=== PATIENT | female | born 1990 | race Caucasian/White ===

== ENCOUNTER 2023-06-27 04:15 | Emergency (ER) | payer MEDICAID ==
[~2023-06-27] VITALS: Ht 162.6 cm; Wt 77.3 kg
[2023-06-27 05:00] LABS: BASO % 0.2 % (0.0-1.0); EOS # 0.1 10^3/uL (0.0-0.5); EOS % 0.5 % (0.0-3.0); HEMATOCRIT 39.4 % (36.0-47.0); HEMOGLOBIN 13.4 g/dl (12.0-15.5); LYMPH # 2.4 10^3/uL (1.5-5.0); LYMPH % 25.1 % (24.0-44.0); MEAN CORPUSCULAR VOLUME 88.1 fl (80.0-96.0); MONO # 0.8 10^3/uL (0.0-0.8); NEUTROPHILS # 6.2 10^3/uL (1.5-8.5); PLATELET COUNT, AUTOMATED 346 10^3/uL (150-450); RED BLOOD COUNT 4.47 10^6/uL (4.00-5.40); WHITE BLOOD COUNT 9.4 10^3/uL (4.0-10.0)
[2023-06-27 05:24] LABS: LIPASE 37 U/L (12-53)
[2023-06-27 05:26] LABS: HCG, SERUM QUALITATIVE NEGATIVE (NEGATIVE)
[2023-06-27 05:27] LABS: ALBUMIN 3.6 G/DL (3.2-5.2); ALKALINE PHOSPHATASE 100 U/L (46-116); ALT/SGPT 14 U/L (7.0-40); AST/SGOT 19 U/L (<34); BILIRUBIN,DIRECT < 0.1 MG/DL (<0.4); BILIRUBIN,TOTAL 0.4 MG/DL (0.3-1.2); BLOOD UREA NITROGEN 10 MG/DL (9-23); CARBON DIOXIDE LEVEL 22 MMOL/L (20-31); CHLORIDE LEVEL 107 MMOL/L (98-107); CREATININE FOR GFR 0.63 MG/DL (0.55-1.30); GLOMERULAR FILTRATION RATE > 60.0 (>60); GLUCOSE, FASTING 100 MG/DL (60-100); POTASSIUM SERUM 4.2 MMOL/L (3.5-5.1); SODIUM LEVEL 141 MMOL/L (136-145); TOTAL PROTEIN 6.9 G/DL (5.7-8.2)
[2023-06-27] MEDS ORDERED: ACETAMINOPHEN 500 MG TAB PO ONE (07:35)
[2023-06-27] MEDS ORDERED: DOXY-443 PO (09:44)
[2023-06-27 09:45] VITALS: BP 141/80; TEMP 97.2; O2SAT 97
== END 2023-06-27 10:05 | disposition home or self-care (01) ==
LOC: M ED 04:15
DX: R11.10 Vomiting, unspecified (principal); R51.9 Headache, unspecified; T14.8XXA Other injury of unspecified body region, initial encounter; Z86.69 Personal history of other diseases of the nervous system and sense organs; F41.9 Anxiety disorder, unspecified; Z91.018 Allergy to other foods

== ENCOUNTER 2023-07-23 16:53 | Inpatient (IN) | payer MEDICAID ==
[~2023-07-23] VITALS: Ht 162.6 cm; Wt 77.3 kg
[~2023-07-23 16:53] MED LIST: DOXY-443 PO
[2023-07-23 18:14] LABS: HEMATOCRIT 41.8 % (36.0-47.0); HEMOGLOBIN 14.1 g/dl (12.0-15.5); MEAN CORPUSCULAR HEMOGLOBIN 30.1 pg (27.0-33.0); MEAN CORPUSCULAR HGB CONC 33.7 g/dl (32.0-36.5); MEAN CORPUSCULAR VOLUME 89.3 fl (80.0-96.0); PLATELET COUNT, AUTOMATED 330 10^3/uL (150-450); RED BLOOD COUNT 4.68 10^6/uL (4.00-5.40); WHITE BLOOD COUNT 8.6 10^3/uL (4.0-10.0)
[2023-07-23 18:21] LABS: BARBITURATES URINE NEGATIVE (NEGATIVE); BENZODIAZEPINES URINE NEGATIVE (NEGATIVE); COCAINE METABOLITE URINE NEGATIVE (NEGATIVE); METHADONE URINE NEGATIVE (NEGATIVE); OPIATES URINE NEGATIVE (NEGATIVE); PHENCYCLIDINE URINE NEGATIVE (NEGATIVE)
[2023-07-23 18:23] LABS: ETHYL ALCOHOL (ETHANOL) 0.004 % (0.000-0.010)
[2023-07-23 18:25] LABS: ALBUMIN 3.9 G/DL (3.2-5.2); ALKALINE PHOSPHATASE 129 U/L (46-116); ALT/SGPT 15 U/L (7.0-40); AST/SGOT 16 U/L (<34); BILIRUBIN,DIRECT 0.1 MG/DL (<0.4); BILIRUBIN,TOTAL 0.3 MG/DL (0.3-1.2); BLOOD UREA NITROGEN 15 MG/DL (9-23); CALCIUM LEVEL 9.6 MG/DL (8.5-10.1); CARBON DIOXIDE LEVEL 25 MMOL/L (20-31); CHLORIDE LEVEL 102 MMOL/L (98-107); CREATININE FOR GFR 0.79 MG/DL (0.55-1.30); GLOMERULAR FILTRATION RATE > 60.0 (>60); GLUCOSE, FASTING 80 MG/DL (60-100); POTASSIUM SERUM 4.4 MMOL/L (3.5-5.1); SALICYLATE LEVEL < 3.0 MG/DL (<30); SODIUM LEVEL 138 MMOL/L (136-145); TOTAL PROTEIN 7.4 G/DL (5.7-8.2)
[2023-07-23 18:27] LABS: THYROID STIMULATING HORMONE 0.753 uIU/ML (0.55-4.78)
[2023-07-23 18:30] LABS: AMPHETAMINES LEVEL URINE POSITIVE (NEGATIVE); CANNABINOIDS URINE POSITIVE (NEGATIVE)
[2023-07-23 18:38] LABS: HCG, SERUM QUALITATIVE NEGATIVE (NEGATIVE)
[2023-07-23] MEDS ORDERED: HOME MED LIST COMPLETE! XX SCH (23:55)
[2023-07-24] MEDS ORDERED: NICOTINE 21MG/24HR 1 EA TRANSDERMAL TD ONE (08:45)
[2023-07-24] MEDS ORDERED: diphenhydrAMINE 25MG CAP PO PRN (12:05)
[2023-07-24] MEDS ORDERED: MAALOX 30 ML SUSP *UDC PO PRN (12:05)
[2023-07-24] MEDS ORDERED: MOM 30ML SUSPENSION UDC PO PRN (12:05)
[2023-07-24 14:14] VITALS: BP 123/67; TEMP 99; O2SAT 100
[2023-07-24] MEDS: traZODone 50 MG TAB PO PRN (20:35)
[2023-07-24] MEDS: IBUPROFEN 400MG TAB PO PRN (20:36)
[2023-07-25 06:33] VITALS: BP 136/68; TEMP 96.7; O2SAT 95
[2023-07-25] MEDS: IBUPROFEN 400MG TAB PO PRN ×2 (08:29→21:16)
[2023-07-25] MEDS: NICOTINE 21MG/24HR 1 EA TRANSDERMAL TD SCH (08:30)
[2023-07-25] MEDS: OLANZapine 5 MG TAB PO SCH ×2 (09:53→21:15)
[2023-07-25] MEDS ORDERED: INFLUENZA QUADRIVALENT PF VACCINE 0.5ML SYRINGE IM.IMMUN ONE (12:00)
[2023-07-25] MEDS ORDERED: ALBUTEROL SULFATE 2.5MG/0.5ML INH NEB SOLN INH PRN (14:10)
[2023-07-25 18:46] VITALS: BP 103/77; TEMP 97.4
[2023-07-25] MEDS: traZODone 50 MG TAB PO PRN (21:15)
[2023-07-26 06:27] VITALS: BP 122/70; TEMP 96.9; O2SAT 98
[2023-07-26] MEDS: IBUPROFEN 400MG TAB PO PRN ×2 (08:46→18:01)
[2023-07-26] MEDS: NICOTINE 21MG/24HR 1 EA TRANSDERMAL TD SCH (08:47)
[2023-07-26] MEDS: OLANZapine 5 MG TAB PO SCH ×2 (08:47→20:11)
[2023-07-26] MEDS: ACETAMINOPHEN TAB 650MG DOSE (2X325MG) PO PRN ×2 (09:40→16:35)
[2023-07-26 17:25] VITALS: BP 136/83; TEMP 98.1; O2SAT 100
[2023-07-26] MEDS: traZODone 50 MG TAB PO PRN (20:11)
[2023-07-27 06:36] VITALS: BP 99/53; TEMP 98.2; O2SAT 100
[2023-07-27] MEDS: NICOTINE 21MG/24HR 1 EA TRANSDERMAL TD SCH (09:37)
[2023-07-27] MEDS: IBUPROFEN 400MG TAB PO PRN (14:04)
[2023-07-27 16:05] VITALS: BP 126/69; TEMP 98.6; O2SAT 98
[2023-07-27] MEDS: ACETAMINOPHEN TAB 650MG DOSE (2X325MG) PO PRN (17:54)
[2023-07-27] MEDS: LOPERAMIDE 2 MG CAPLET PO PRN (17:54)
[2023-07-27] MEDS: traZODone 50 MG TAB PO PRN (20:00)
[2023-07-27] MEDS: OLANZapine 5 MG TAB PO SCH (20:00)
[2023-07-28] MEDS ORDERED: OLAN1TAB16 PO (04:22)
[2023-07-28] MEDS ORDERED: NICO21PAT TD (04:22)
[2023-07-28] MEDS ORDERED: TRAZ-252 PO (04:22)
[2023-07-28 06:43] VITALS: BP 100/59; TEMP 98.1; O2SAT 94
[2023-07-28] MEDS: NICOTINE 21MG/24HR 1 EA TRANSDERMAL TD SCH (08:49)
[2023-07-28] MEDS: LOPERAMIDE 2 MG CAPLET PO PRN (08:50)
[2023-07-28] MEDS: ACETAMINOPHEN TAB 650MG DOSE (2X325MG) PO PRN (08:50)
[2023-07-28] MEDS ORDERED: LOPE2CA PO (10:57)
== END 2023-07-28 11:33 | disposition home or self-care (01) | DRG 776 ==
LOC: M ED 16:53 → M ED INP 07-24 12:02 → M PSY 07-24 14:20
PROVIDERS: ADMIT Student in an Organized Health Care Education/Training Program; ATTEND Student in an Organized Health Care Education/Training Program
DX: F15.959 Other stimulant use, unspecified with stimulant-induced psychotic disorder, unspecified (principal); F41.9 Anxiety disorder, unspecified; F43.10 Post-traumatic stress disorder, unspecified; G40.909 Epilepsy, unspecified, not intractable, without status epilepticus; F17.290 Nicotine dependence, other tobacco product, uncomplicated; F12.90 Cannabis use, unspecified, uncomplicated; J45.909 Unspecified asthma, uncomplicated; M54.9 Dorsalgia, unspecified; R45.850 Homicidal ideations; Z91.410 Personal history of adult physical and sexual abuse; Z81.1 Family history of alcohol abuse and dependence; Z56.0 Unemployment, unspecified; Z20.822 Contact with and (suspected) exposure to COVID-19; Z91.018 Allergy to other foods

== ENCOUNTER → 2024-03-22 | Outpatient (REF) | payer OTHER, MEDICAID ==
[~2024-03-22] MED LIST changes: +DOXY-323 PO; -DOXY-443 PO; +ETON68IM SC; +LOPE2CA PO; +NICO1DIS12; +NICO21PAT TD; +OLAN1TAB16 PO; +PRED50TA PO; +TRAZ-252 PO
[2024-03-22 18:28] LABS: ALBUMIN 3.6 G/DL (3.2-5.2); ALKALINE PHOSPHATASE 103 U/L (46-116); ALT/SGPT 20 U/L (7.0-40); AST/SGOT 16 U/L (<34); BILIRUBIN,DIRECT < 0.1 MG/DL (<0.4); BILIRUBIN,TOTAL 0.2 MG/DL (0.3-1.2); CHOLESTEROL LEVEL 178 MG/DL (<200); CHOLESTEROL RISK RATIO 3.39 (<5); HDL CHOLESTEROL 52.5 MG/DL (>40); LDL CHOLESTEROL 109.7 MG/DL (<100); NON-HDL-C 125.5 MG/DL; TOTAL PROTEIN 6.6 G/DL (5.7-8.2); TRIGLYCERIDES LEVEL 79 MG/DL (<150)
[2024-03-22 18:30] LABS: THYROID STIMULATING HORMONE 1.126 uIU/ML (0.55-4.78)
[2024-03-22 18:33] LABS: BASO % 0.5 % (0.0-1.0); EOS # 0.1 10^3/uL (0.0-0.5); EOS % 2.4 % (0.0-3.0); HEMATOCRIT 41.6 % (36.0-47.0); HEMOGLOBIN 13.6 g/dl (12.0-15.5); LYMPH # 2.4 10^3/uL (1.5-5.0); LYMPH % 40.5 % (24.0-44.0); MEAN CORPUSCULAR HEMOGLOBIN 28.6 pg (27.0-33.0); MEAN CORPUSCULAR HGB CONC 32.7 g/dl (32.0-36.5); MEAN CORPUSCULAR VOLUME 87.6 fl (80.0-96.0); MONO # 0.5 10^3/uL (0.0-0.8); MONO % 7.8 % (2.0-8.0); NEUTROPHILS # 2.9 10^3/uL (1.5-8.5); NEUTROPHILS % 48.6 % (36.0-66.0); PLATELET COUNT, AUTOMATED 340 10^3/uL (150-450); RED BLOOD COUNT 4.75 10^6/uL (4.00-5.40); WHITE BLOOD COUNT 5.9 10^3/uL (4.0-10.0)
[2024-03-22 18:36] LABS: HEMOGLOBIN A1c 5.1 % (4.0-6.0)
== END ==
LOC: M LAB REF 16:31
PROVIDERS: ATTEND Nurse Practitioner Family
DX: E55.9 Vitamin D deficiency, unspecified (principal); E66.3 Overweight; R53.83 Other fatigue; F15.11 Other stimulant abuse, in remission; Z11.9 Encounter for screening for infectious and parasitic diseases, unspecified

== ENCOUNTER 2024-08-05 16:09 | Emergency (ER) | payer OTHER ==
[~2024-08-05] VITALS: Ht 162.6 cm; Wt 77.1 kg
[~2024-08-05 16:09] MED LIST changes: -DOXY-323 PO; +DOXY-441 PO
[2024-08-05] MEDS: IBUPROFEN 600MG TAB PO ONE (23:30)
[2024-08-06] MEDS ORDERED: IBUP-1022 PO (00:55)
[2024-08-06 01:33] VITALS: BP 134/72; TEMP 97.9; O2SAT 98
== END 2024-08-06 01:35 | disposition home or self-care (01) ==
LOC: M ED 16:09 → EDBD 16:09 → M ED 08-06 01:35
DX: M54.50 Low back pain, unspecified (principal); F43.0 Acute stress reaction; R56.9 Unspecified convulsions; J45.909 Unspecified asthma, uncomplicated; F19.10 Other psychoactive substance abuse, uncomplicated; Z79.3 Long term (current) use of hormonal contraceptives

== ENCOUNTER 2024-08-11 17:51 | Emergency (ER) | payer OTHER ==
[~2024-08-11] VITALS: Ht 162.6 cm; Wt 79.5 kg
[~2024-08-11 17:51] MED LIST changes: +IBUP-1022 PO
[2024-08-11 19:44] LABS: BASO % 0.2 % (0.0-1.0); EOS % 0.1 % (0.0-3.0); HEMATOCRIT 34.4 % (36.0-47.0); HEMOGLOBIN 11.4 g/dl (12.0-15.5); LYMPH # 1.2 10^3/uL (1.5-5.0); LYMPH % 8.4 % (24.0-44.0); MEAN CORPUSCULAR HEMOGLOBIN 28.2 pg (27.0-33.0); MEAN CORPUSCULAR HGB CONC 33.1 g/dl (32.0-36.5); MEAN CORPUSCULAR VOLUME 85.1 fl (80.0-96.0); MONO # 0.4 10^3/uL (0.0-0.8); MONO % 3.2 % (2.0-8.0); NEUTROPHILS # 12.1 10^3/uL (1.5-8.5); NEUTROPHILS % 87.4 % (36.0-66.0); PLATELET COUNT, AUTOMATED 279 10^3/uL (150-450); RED BLOOD COUNT 4.04 10^6/uL (4.00-5.40); WHITE BLOOD COUNT 13.9 10^3/uL (4.0-10.0)
[2024-08-11 20:07] LABS: HCG, SERUM QUALITATIVE NEGATIVE (NEGATIVE)
[2024-08-11 20:10] LABS: BLOOD UREA NITROGEN 11 MG/DL (9-23); CALCIUM LEVEL 8.6 MG/DL (8.5-10.1); CARBON DIOXIDE LEVEL 28 MMOL/L (20-31); CHLORIDE LEVEL 97 MMOL/L (98-107); CK-MB VALUE MASS < 1.0 NG/ML (<3.6); CREATININE FOR GFR 0.68 MG/DL (0.55-1.30); GLOMERULAR FILTRATION RATE > 60.0 (>60); GLUCOSE, FASTING 110 MG/DL (60-100); POTASSIUM SERUM 4.5 MMOL/L (3.5-5.1); SODIUM LEVEL 133 MMOL/L (136-145)
[2024-08-11 20:13] LABS: CPK CREATINE PHOSPHOKINASE 39 U/L (34-145); MB/CK RELATIVE INDEX 2.56 (< OR =4)
[2024-08-11] MEDS: diphenhydrAMINE 50MG/ML VIAL IV ONE (20:50)
[2024-08-11] MEDS: NS (Normal Saline) 0.9% 1,000 ML IV ONE (20:50)
[2024-08-11] MEDS: KETOROLAC 30 MG/ML 1ML VIAL IV ONE (20:51)
[2024-08-11] MEDS: ACETAMINOPHEN 500 MG TAB PO ONE (20:51)
[2024-08-11] MEDS: METOCLOPRAMIDE INJ 10MG/2ML VIAL IV ONE (20:51)
[2024-08-11] MEDS: AZITHROMYCIN 250MG TABLET PO ONE (22:06)
[2024-08-11] MEDS ORDERED: AZIT-12 PO (22:28)
[2024-08-11 22:45] VITALS: BP 106/58; TEMP 98.7; O2SAT 99
[2024-08-11 23:03] LABS: BARBITURATES URINE NEGATIVE (NEGATIVE); BENZODIAZEPINES URINE NEGATIVE (NEGATIVE); CANNABINOIDS URINE NEGATIVE (NEGATIVE); COCAINE METABOLITE URINE NEGATIVE (NEGATIVE); METHADONE URINE NEGATIVE (NEGATIVE); OPIATES URINE NEGATIVE (NEGATIVE); PHENCYCLIDINE URINE NEGATIVE (NEGATIVE)
[2024-08-11 23:05] LABS: AMPHETAMINES LEVEL URINE POSITIVE (NEGATIVE)
[2024-08-12] MEDS ORDERED: AZIT-12 PO (20:27)
[2024-10-17] MEDS ORDERED: IBUP1TAB7 PO (14:46)
[2024-10-17] MEDS ORDERED: TAMO20TA8 PO (14:47)
[2024-10-17] MEDS ORDERED: METO1TAB87 PO (14:48)
[2024-10-17] MEDS ORDERED: CHEL100T4 PO (14:49)
[2024-10-17] MEDS ORDERED: CYCL5TAB4 PO (14:50)
[2024-10-17] MEDS ORDERED: CEPH500C PO (14:50)
[2024-10-17] MEDS ORDERED: ACET-1349 PO (14:51)
[2024-10-17] MEDS ORDERED: TRAM50TA2 PO (14:51)
[2024-10-17] MEDS ORDERED: MELA10CA2 PO (14:52)
[2024-10-17] MEDS ORDERED: TRAZ1TAB14 PO (15:42)
[2024-10-17] MEDS ORDERED: OXYC10TA12 PO (15:42)
[2024-10-17] MEDS ORDERED: CYCL-707 PO (15:42)
[2024-10-17] MEDS ORDERED: LEXA1TAB PO (15:42)
[2024-10-17] MEDS ORDERED: MELO15TA28 PO (15:42)
== END 2024-08-11 22:46 | disposition home or self-care (01) ==
LOC: M ED 22:25
DX: J18.9 Pneumonia, unspecified organism (principal); R51.9 Headache, unspecified; J45.909 Unspecified asthma, uncomplicated; F43.10 Post-traumatic stress disorder, unspecified; R56.9 Unspecified convulsions; F17.200 Nicotine dependence, unspecified, uncomplicated; F14.10 Cocaine abuse, uncomplicated; F19.10 Other psychoactive substance abuse, uncomplicated; Z79.899 Other long term (current) drug therapy; Z91.018 Allergy to other foods
CPT/HCPCS: 70450; 71045; 80048; 80307; 82550; 82553; 84484; 84703; 85025; 93005; 93041; 96361; 96374; 96375; 99284; J1200; J1885; J2765

== ENCOUNTER 2024-08-12 16:43 | Emergency (ER) | payer OTHER ==
[~2024-08-12] VITALS: Ht 162.6 cm; Wt 79.1 kg
[~2024-08-12 16:43] MED LIST changes: +AZIT-12 PO
[2024-08-12] MEDS: ACETAMINOPHEN 500 MG TAB PO ONE (19:20)
[2024-08-12] MEDS: AZITHROMYCIN 250MG TABLET PO ONE (20:25)
[2024-08-12] MEDS: diphenhydrAMINE 25MG CAP PO ONE (20:25)
[2024-08-12] MEDS: KETOROLAC TROMETHAMINE 10 MG TAB PO ONE (20:25)
[2024-08-12] MEDS ORDERED: AZIT-12 PO (20:27)
[2024-08-12 20:45] VITALS: BP 116/59; TEMP 99.3; O2SAT 98
== END 2024-08-12 20:46 | disposition home or self-care (01) ==
LOC: M ED 16:43
DX: J18.9 Pneumonia, unspecified organism (principal); Z91.199 Patient's noncompliance with other medical treatment and regimen due to unspecified reason; F19.10 Other psychoactive substance abuse, uncomplicated; Z87.891 Personal history of nicotine dependence; Z79.3 Long term (current) use of hormonal contraceptives; Z79.899 Other long term (current) drug therapy; Z91.018 Allergy to other foods

== ENCOUNTER 2024-08-16 18:58 | Inpatient (IN) | payer OTHER ==
[~2024-08-16] VITALS: Ht 162.6 cm; Wt 92.0 kg
[2024-08-16] MEDS: ACETAMINOPHEN 325 MG TAB PO ONE (20:12)
[2024-08-16] MEDS: NS (Normal Saline) 0.9% 1,000 ML IV ONE (20:12)
[2024-08-16] MEDS: PIPERACILLIN/TAZOBACTAM SOD 4.5 GM in DEXTROSE 5% (D5W) ADV/MINI-BAG 50 ML IV ONE (20:13)
[2024-08-16 20:14] LABS: APPEARANCE, URINE HAZY (CLEAR); BACTERIA, URINE AUTO NEGATIVE (NEGATIVE); BILIRUBIN, URINE AUTO NEGATIVE (NEGATIVE); BLOOD, URINE BLOOD 3+ (NEGATIVE); COLOR, URINE YELLOW (YELLOW); GLUCOSE, URINE (UA) AUTO NEGATIVE (NEGATIVE); KETONE, URINE AUTO NEGATIVE (NEGATIVE); LEUKOCYTE ESTERASE, URINE AUTO TRACE (NEGATIVE); MUCUS, URINE SMALL (NEGATIVE); NITRITE, URINE AUTO NEGATIVE (NEGATIVE); PROTEIN, URINE AUTO 1+ mg/dL (NEGATIVE); RBC, URINE AUTO 5 /HPF (0-3); SPECIFIC GRAVITY URINE AUTO 1.015 (1.002-1.035); SQUAMOUS EPITHELIAL CELL UR AU 0 /HPF (0-6); WBC, URINE AUTO 12 /HPF (0-3)
[2024-08-16 20:16] LABS: HEMATOCRIT 31.3 % (36.0-47.0); HEMOGLOBIN 10.6 g/dl (12.0-15.5); MEAN CORPUSCULAR HGB CONC 33.9 g/dl (32.0-36.5); MEAN CORPUSCULAR VOLUME 82.8 fl (80.0-96.0); PLATELET COUNT, AUTOMATED 124 10^3/uL (150-450); RED BLOOD COUNT 3.78 10^6/uL (4.00-5.40); WHITE BLOOD COUNT 10.5 10^3/uL (4.0-10.0)
[2024-08-16 20:22] LABS: INR 1.08; PARTIAL THROMBOPLASTIN TIME 23.7 SECONDS (24.8-34.2); PROTHROMBIN TIME 14.3 SECONDS (12.5-14.5)
[2024-08-16 20:38] LABS: LIPASE 30 U/L (12-53)
[2024-08-16 20:39] LABS: HCG, SERUM QUALITATIVE NEGATIVE (NEGATIVE)
[2024-08-16 20:40] LABS: ALBUMIN 1.8 G/DL (3.2-5.2); ALKALINE PHOSPHATASE 152 U/L (35-104); ALT/SGPT 36 U/L (7.0-40); AST/SGOT 32 U/L (<34); BILIRUBIN,DIRECT 0.3 MG/DL (<0.4); BILIRUBIN,TOTAL 0.6 MG/DL (0.3-1.2); BLOOD UREA NITROGEN 14 MG/DL (9-23); CALCIUM LEVEL 8.2 MG/DL (8.5-10.1); CARBON DIOXIDE LEVEL 25 MMOL/L (20-31); CHLORIDE LEVEL 97 MMOL/L (98-107); CREATININE FOR GFR 0.87 MG/DL (0.55-1.30); GLOMERULAR FILTRATION RATE > 60.0 (>60); GLUCOSE, FASTING 127 MG/DL (60-100); SODIUM LEVEL 132 MMOL/L (136-145); TOTAL PROTEIN 6.6 G/DL (5.7-8.2)
[2024-08-16 20:55] LABS: LYMPHOCYTES 12 % (16-44); MONOCYTES 2 % (0-5); NEUTROPHILS 85 % (28-66)
[2024-08-16 20:56] LABS: PLATELET ESTIMATE NORMAL (NORMAL)
[2024-08-16] MEDS ORDERED: ISOVUE-370 76% 100ML VIAL As Ordered ONE (23:08)
[2024-08-17] MEDS: KETOROLAC 30 MG/ML 1ML VIAL IV ONE (00:11)
[2024-08-17] MEDS ORDERED: TRAZ1TAB14 PO (01:39)
[2024-08-17] MEDS ORDERED: AZIT-12 PO (01:39)
[2024-08-17] MEDS ORDERED: MELA5TAB47 PO (01:39)
[2024-08-17] MEDS ORDERED: IBUP-1022 PO (01:40)
[2024-08-17] MEDS ORDERED: HOME MED LIST COMPLETE! XX SCH (01:45)
[2024-08-17 03:12] LABS: C REACTIVE PROTEIN QUANTITATIV 23.71 MG/DL (<1.0)
[2024-08-17 03:28] LABS: ERYTHROCYTE SEDIMENTATION RATE 123 mm/hr (0-20)
[2024-08-17 04:20] LABS: HEPATITIS B SURFACE ANTIBODY POSITIVE (POSITIVE)
[2024-08-17 04:25] LABS: PROCALCITONIN 0.42 ng/ml
[2024-08-17 04:33] LABS: HEPATITIS B SURFACE ANTIGEN NEGATIVE (NEGATIVE)
[2024-08-17 04:46] LABS: HIV 1&2 SCREEN NEGATIVE (NEGATIVE)
[2024-08-17] MEDS: IBUPROFEN 400MG TAB PO PRN (05:00)
[2024-08-17] MEDS: HEPARIN SOD (PORCINE) 5000UNITS/ML 1ML VIAL/SYRINGE SC SCH (05:47)
[2024-08-17 05:54] LABS: HEPATITIS C VIRUS ABY INDEX > 11.00 INDEX (<0.8)
[2024-08-17] MEDS ORDERED: VANCOMYCIN HCL 0 MG in IV FLUID PLACE HOLDER 1 EA IV SCH ×2 (07:10→10:40)
[2024-08-17] MEDS: NS (Normal Saline) 0.9% 1,000 ML IV SCH (07:36)
[2024-08-17] MEDS: PIPERACILLIN/TAZOBACTAM SOD 4.5 GM in DEXTROSE 5% (D5W) ADV/MINI-BAG 50 ML IV SCH (07:36)
[2024-08-17 08:32] LABS: HEMATOCRIT 26.2 % (36.0-47.0); HEMOGLOBIN 8.9 g/dl (12.0-15.5); MEAN CORPUSCULAR HEMOGLOBIN 28.4 pg (27.0-33.0); MEAN CORPUSCULAR VOLUME 83.7 fl (80.0-96.0); RED BLOOD COUNT 3.13 10^6/uL (4.00-5.40); WHITE BLOOD COUNT 8.5 10^3/uL (4.0-10.0)
[2024-08-17 08:34] LABS: PLATELET COUNT, AUTOMATED 91 10^3/uL (150-450)
[2024-08-17 08:38] LABS: BLOOD UREA NITROGEN 18 MG/DL (9-23); CALCIUM LEVEL 7.7 MG/DL (8.5-10.1); CARBON DIOXIDE LEVEL 26 MMOL/L (20-31); CHLORIDE LEVEL 99 MMOL/L (98-107); GLOMERULAR FILTRATION RATE > 60.0 (>60); GLUCOSE, FASTING 133 MG/DL (60-100); POTASSIUM SERUM 3.2 MMOL/L (3.5-5.1); SODIUM LEVEL 134 MMOL/L (136-145)
[2024-08-17] MEDS: VANCOMYCIN HCL 1,500 MG, VIAL MATE ADAPTER 1 EACH in NS 500 ML IV ONE (08:54)
[2024-08-17 09:27] LABS: ANISOCYTOSIS 1+; ATYPICAL LYMPH 3 % (0-5); EOSINOPHILS 2 % (0-3); LYMPHOCYTES 18 % (16-44); MONOCYTES 6 % (0-5); NEUTROPHILS 71 % (28-66); PLATELET ESTIMATE DECREASED (NORMAL); POIKILOCYTOSIS 1+
[2024-08-17 10:19] LABS: MAGNESIUM LEVEL 2.1 MG/DL (1.8-2.4)
[2024-08-17] MEDS: POTASSIUM CHLORIDE 10MEQ SR TABLET PO ONE (11:25)
[2024-08-17 12:00] VITALS: BP 126/84; TEMP 97.8; O2SAT 96
[2024-08-17 13:26] LABS: BLOOD UREA NITROGEN 18 MG/DL (9-23); CALCIUM LEVEL 7.7 MG/DL (8.5-10.1); CARBON DIOXIDE LEVEL 25 MMOL/L (20-31); CHLORIDE LEVEL 102 MMOL/L (98-107); CREATININE FOR GFR 0.76 MG/DL (0.55-1.30); GLOMERULAR FILTRATION RATE > 60.0 (>60); GLUCOSE, FASTING 130 MG/DL (60-100); POTASSIUM SERUM 3.6 MMOL/L (3.5-5.1); SODIUM LEVEL 136 MMOL/L (136-145)
[2024-08-17] MEDS: KETOROLAC TROMETHAMINE 10 MG TAB PO ONE (14:20)
[2024-08-17] MEDS: VANCOMYCIN 1,250 MG/250 ML IV BAG IV SCH (16:15)
[2024-08-17] MEDS: KETOROLAC 30 MG/ML 1ML VIAL IV SCH (16:16)
[2024-08-17 17:45] VITALS: BP 127/83; TEMP 97.4; O2SAT 98
[2024-08-17 19:31] VITALS: BP 130/65; TEMP 98.5; O2SAT 95
[2024-08-17] MEDS: ACETAMINOPHEN 325 MG TAB PO PRN (19:41)
[2024-08-17] MEDS: traZODone 50 MG TAB PO SCH (22:02)
[2024-08-17 23:59] VITALS: BP 130/86; TEMP 98.6; O2SAT 96
[2024-08-18 03:21] VITALS: BP 132/91; TEMP 97.8; O2SAT 94
[2024-08-18 08:04] VITALS: BP 140/91; TEMP 98; O2SAT 99
[2024-08-18 09:20] LABS: BASO % 0.4 % (0.0-1.0); EOS # 0.1 10^3/uL (0.0-0.5); EOS % 1.2 % (0.0-3.0); HEMATOCRIT 27.2 % (36.0-47.0); LYMPH # 2.4 10^3/uL (1.5-5.0); LYMPH % 22.1 % (24.0-44.0); MEAN CORPUSCULAR HGB CONC 33.1 g/dl (32.0-36.5); MEAN CORPUSCULAR VOLUME 84.5 fl (80.0-96.0); MONO # 0.9 10^3/uL (0.0-0.8); MONO % 8.4 % (2.0-8.0); PLATELET COUNT, AUTOMATED 139 10^3/uL (150-450); RED BLOOD COUNT 3.22 10^6/uL (4.00-5.40); WHITE BLOOD COUNT 10.6 10^3/uL (4.0-10.0)
[2024-08-18 10:28] LABS: ALBUMIN 1.5 G/DL (3.2-5.2); ALKALINE PHOSPHATASE 151 U/L (35-104); ALT/SGPT 29 U/L (7.0-40); AST/SGOT 43 U/L (<34); BILIRUBIN,TOTAL 0.3 MG/DL (0.3-1.2); BLOOD UREA NITROGEN 19 MG/DL (9-23); CALCIUM LEVEL 8.3 MG/DL (8.5-10.1); CARBON DIOXIDE LEVEL 21 MMOL/L (20-31); CHLORIDE LEVEL 105 MMOL/L (98-107); CREATININE FOR GFR 0.66 MG/DL (0.55-1.30); GLOMERULAR FILTRATION RATE > 60.0 (>60); GLUCOSE, FASTING 115 MG/DL (60-100); POTASSIUM SERUM 4.2 MMOL/L (3.5-5.1); SODIUM LEVEL 135 MMOL/L (136-145); TOTAL PROTEIN 6.2 G/DL (5.7-8.2)
[2024-08-18 11:24] VITALS: BP 124/81; TEMP 98.5; O2SAT 97
[2024-08-18] MEDS: KETOROLAC 30 MG/ML 1ML VIAL IV PRN (15:23)
[2024-08-18 16:07] LABS: % LABILE ALKALINE PHOSPHATASE 61.2 %
[2024-08-18 16:18] VITALS: BP 151/95; TEMP 99.2; O2SAT 96
[2024-08-18 19:55] VITALS: BP 152/78; TEMP 97.5; O2SAT 96
[2024-08-18 23:14] VITALS: BP 133/82; TEMP 97.3; O2SAT 96
[2024-08-19] VITALS (8 sets, daily range): BP systolic 129–152; BP diastolic 80–100; TEMP 98.1–101.2; O2SAT 95–99
[2024-08-19 06:26] LABS: BASO # 0.1 10^3/uL (0.0-0.2); BASO % 0.4 % (0.0-1.0); EOS # 0.2 10^3/uL (0.0-0.5); EOS % 1.3 % (0.0-3.0); HEMATOCRIT 23.3 % (36.0-47.0); HEMOGLOBIN 7.8 g/dl (12.0-15.5); LYMPH # 2.4 10^3/uL (1.5-5.0); LYMPH % 20.2 % (24.0-44.0); MEAN CORPUSCULAR HEMOGLOBIN 28.3 pg (27.0-33.0); MEAN CORPUSCULAR HGB CONC 33.5 g/dl (32.0-36.5); MEAN CORPUSCULAR VOLUME 84.4 fl (80.0-96.0); MONO # 0.7 10^3/uL (0.0-0.8); MONO % 6.2 % (2.0-8.0); NEUTROPHILS # 8.1 10^3/uL (1.5-8.5); NEUTROPHILS % 69.3 % (36.0-66.0); PLATELET COUNT, AUTOMATED 172 10^3/uL (150-450); RED BLOOD COUNT 2.76 10^6/uL (4.00-5.40); WHITE BLOOD COUNT 11.7 10^3/uL (4.0-10.0)
[2024-08-19 06:46] LABS: PREALBUMIN 6.1 MG/DL (10.0-40.0)
[2024-08-19 06:47] LABS: C REACTIVE PROTEIN QUANTITATIV 13.13 MG/DL (<1.0)
[2024-08-19 06:51] LABS: ALBUMIN 1.4 G/DL (3.2-5.2); ALKALINE PHOSPHATASE 154 U/L (35-104); ALT/SGPT 25 U/L (7.0-40); AST/SGOT 30 U/L (<34); BILIRUBIN,TOTAL 0.3 MG/DL (0.3-1.2); BLOOD UREA NITROGEN 19 MG/DL (9-23); CALCIUM LEVEL 7.9 MG/DL (8.5-10.1); CARBON DIOXIDE LEVEL 21 MMOL/L (20-31); CHLORIDE LEVEL 105 MMOL/L (98-107); GLOMERULAR FILTRATION RATE > 60.0 (>60); GLUCOSE, FASTING 114 MG/DL (60-100); PHOSPHORUS LEVEL 4.4 MG/DL (2.5-4.9); POTASSIUM SERUM 4.2 MMOL/L (3.5-5.1); SODIUM LEVEL 135 MMOL/L (136-145); TOTAL PROTEIN 5.6 G/DL (5.7-8.2)
[2024-08-19] MEDS ORDERED: LIDOCAINE 1% MDV 20ML VIAL As Ordered ONE (10:09)
[2024-08-19] MEDS: ceFAZolin SOD 2 GM in IV 1 EA IV SCH (11:09)
[2024-08-19] MEDS ORDERED: GABAPENTIN 300 MG CAP PO SCH (13:25)
[2024-08-19] MEDS: GABAPENTIN 300 MG CAP PO ONE (13:38)
[2024-08-19 15:53] LABS: HEMATOCRIT 24.9 % (36.0-47.0); HEMOGLOBIN 8.4 g/dl (12.0-15.5); MEAN CORPUSCULAR HEMOGLOBIN 28.2 pg (27.0-33.0); MEAN CORPUSCULAR HGB CONC 33.7 g/dl (32.0-36.5); MEAN CORPUSCULAR VOLUME 83.6 fl (80.0-96.0); PLATELET COUNT, AUTOMATED 192 10^3/uL (150-450); RED BLOOD COUNT 2.98 10^6/uL (4.00-5.40); WHITE BLOOD COUNT 12.3 10^3/uL (4.0-10.0)
[2024-08-20] VITALS (10 sets, daily range): BP systolic 128–141; BP diastolic 74–96; TEMP 98–102.7; O2SAT 94–99
[2024-08-20] MEDS: PROMETHAZINE 25MG/ML 1ML VIAL IV PRN (03:17)
[2024-08-20] MEDS: ACETAMINOPHEN *IV* 1,000 MG in IV 1 EA IV ONE (03:47)
[2024-08-20] MEDS: LR 1,000 ML IV ONE (03:48)
[2024-08-20 06:12] LABS: HEMATOCRIT 22.8 % (36.0-47.0); HEMOGLOBIN 7.6 g/dl (12.0-15.5); MEAN CORPUSCULAR HEMOGLOBIN 28.1 pg (27.0-33.0); MEAN CORPUSCULAR HGB CONC 33.3 g/dl (32.0-36.5); MEAN CORPUSCULAR VOLUME 84.4 fl (80.0-96.0); PLATELET COUNT, AUTOMATED 228 10^3/uL (150-450); WHITE BLOOD COUNT 12.3 10^3/uL (4.0-10.0)
[2024-08-20 06:34] LABS: C REACTIVE PROTEIN QUANTITATIV 12.12 MG/DL (<1.0)
[2024-08-20 06:36] LABS: ALBUMIN 1.4 G/DL (3.2-5.2); ALKALINE PHOSPHATASE 158 U/L (35-104); ALT/SGPT 21 U/L (7.0-40); AST/SGOT 22 U/L (<34); BILIRUBIN,TOTAL 0.3 MG/DL (0.3-1.2); BLOOD UREA NITROGEN 20 MG/DL (9-23); CARBON DIOXIDE LEVEL 22 MMOL/L (20-31); CHLORIDE LEVEL 107 MMOL/L (98-107); CREATININE FOR GFR 0.81 MG/DL (0.55-1.30); GLOMERULAR FILTRATION RATE > 60.0 (>60); GLUCOSE, FASTING 103 MG/DL (60-100); POTASSIUM SERUM 4.4 MMOL/L (3.5-5.1); SODIUM LEVEL 138 MMOL/L (136-145)
[2024-08-20 07:48] LABS: HCV RNA QUANTITATION <15 NOT DETECTED IU/mL (NOT DETECTED); HCV RNA log10 <1.18 NOT DETECTED Log IU/mL (NOT DETECTED)
[2024-08-20] MEDS ORDERED: SODIUM CHLORIDE HYPERTONIC 3% 4ML NEB SOL INH PRN (08:35)
[2024-08-20] MEDS ORDERED: BUPRENORPHINE HCL 8MG SUBINGUAL TABLET SL SCH (09:00)
[2024-08-20] MEDS ORDERED: FLUZONE VACCINE TRIVALENT PF(2024-25) 0.5ML SYRINGE IM.IMMUN ONE (09:00)
[2024-08-20] MEDS ORDERED: RAMELTEON 8 MG TAB (ROZEREM) PO PRN (10:15)
[2024-08-20] MEDS: GABAPENTIN 300 MG CAP PO SCH (10:25)
[2024-08-20 11:00] LABS: ATYPICAL LYMPH 10 % (0-5); BASOPHILS 2 % (0-1); LYMPHOCYTES 13 % (16-44); METAMYELOCYTES 6 % (0-0); MONOCYTES 6 % (0-5); MYELOCYTES 2 % (0-0); NEUTROPHILS 53 % (28-66)
[2024-08-20 11:01] LABS: ANISOCYTOSIS 1+; HYPOCHROMASIA 1+; PLATELET ESTIMATE NORMAL (NORMAL)
[2024-08-20 11:28] LABS: QuantiFERON-TB Gold Plus NEGATIVE (NEGATIVE)
[2024-08-20] MEDS: SODIUM CHLORIDE HYPERTONIC 3% 4ML NEB SOL INH SCH (16:41)
[2024-08-20 18:18] LABS: URINE STREP PNEUMONIAE ANTIGEN NOT DETECTED (NOT DETECT)
[2024-08-20 19:37] LABS: BASO # 0.1 10^3/uL (0.0-0.2); BASO % 0.4 % (0.0-1.0); EOS # 0.2 10^3/uL (0.0-0.5); EOS % 1.7 % (0.0-3.0); HEMATOCRIT 23.5 % (36.0-47.0); HEMOGLOBIN 7.9 g/dl (12.0-15.5); LYMPH # 2.5 10^3/uL (1.5-5.0); LYMPH % 20.5 % (24.0-44.0); MEAN CORPUSCULAR HEMOGLOBIN 28.5 pg (27.0-33.0); MEAN CORPUSCULAR HGB CONC 33.6 g/dl (32.0-36.5); MEAN CORPUSCULAR VOLUME 84.8 fl (80.0-96.0); MONO # 1.1 10^3/uL (0.0-0.8); MONO % 8.6 % (2.0-8.0); NEUTROPHILS # 7.9 10^3/uL (1.5-8.5); NEUTROPHILS % 64.5 % (36.0-66.0); PLATELET COUNT, AUTOMATED 260 10^3/uL (150-450); RED BLOOD COUNT 2.77 10^6/uL (4.00-5.40); WHITE BLOOD COUNT 12.2 10^3/uL (4.0-10.0)
[2024-08-20 20:11] LABS: BLOOD UREA NITROGEN 17 MG/DL (9-23); CALCIUM LEVEL 7.9 MG/DL (8.5-10.1); CARBON DIOXIDE LEVEL 23 MMOL/L (20-31); CHLORIDE LEVEL 106 MMOL/L (98-107); CREATININE FOR GFR 0.79 MG/DL (0.55-1.30); GLOMERULAR FILTRATION RATE > 60.0 (>60); GLUCOSE, FASTING 113 MG/DL (60-100); MAGNESIUM LEVEL 1.5 MG/DL (1.8-2.4); POTASSIUM SERUM 4.7 MMOL/L (3.5-5.1); SODIUM LEVEL 137 MMOL/L (136-145)
[2024-08-20] MEDS: MORPHINE 2 MG/ML 1ML VIAL IV PRN (20:29)
[2024-08-20] MEDS: ALBUTEROL 90 MCG/ACT 8GM HFA INHALER INH PRN (23:16)
[2024-08-21] VITALS (7 sets, daily range): BP systolic 120–167; BP diastolic 69–102; TEMP 98.9–101.2; O2SAT 94–96
[2024-08-21 00:38] LABS: ANCA SCREEN Negative (Negative)
[2024-08-21] MEDS: LR 1,000 ML IV ONE (03:19)
[2024-08-21] MEDS: ACETAMINOPHEN *IV* 1,000 MG in IV 1 EA IV ONE (05:13)
[2024-08-21] MEDS ORDERED: KETOROLAC 30 MG/ML 1ML VIAL IV PRN (07:45)
[2024-08-21] MEDS: GABAPENTIN 300 MG CAP PO SCH (09:28)
[2024-08-21] MEDS: MAGNESIUM OXIDE 400MG TAB (MAG-OX) PO SCH (09:29)
[2024-08-21] MEDS ORDERED: ERTAPENEM SODIUM 1 GM in NS MINI-BAG PLUS 50 ML IV SCH (10:00)
[2024-08-21] MEDS: KETOROLAC 30 MG/ML 1ML VIAL IV SCH (10:28)
[2024-08-21] MEDS ORDERED: ACETAMINOPHEN 325 MG TAB PO SCH (12:00)
[2024-08-21] MEDS: ACETAMINOPHEN 500 MG TAB PO SCH (12:38)
[2024-08-21] MEDS: ERTAPENEM SODIUM 1 GM in NS MINI-BAG PLUS 50 ML IV SCH (12:38)
[2024-08-21 22:27] LABS: HISTO GAL'MANNAN AG UR QNT < 0.2 ng/mL (<0.2)
[2024-08-22] VITALS (11 sets, daily range): BP systolic 122–158; BP diastolic 75–116; TEMP 98.9–102.5; O2SAT 92–97
[2024-08-22 06:22] LABS: BASO % 0.3 % (0.0-1.0); EOS # 0.3 10^3/uL (0.0-0.5); EOS % 2.3 % (0.0-3.0); HEMATOCRIT 22.6 % (36.0-47.0); HEMOGLOBIN 7.3 g/dl (12.0-15.5); LYMPH # 2.8 10^3/uL (1.5-5.0); LYMPH % 23.6 % (24.0-44.0); MEAN CORPUSCULAR HEMOGLOBIN 27.8 pg (27.0-33.0); MEAN CORPUSCULAR HGB CONC 32.3 g/dl (32.0-36.5); MEAN CORPUSCULAR VOLUME 85.9 fl (80.0-96.0); MONO # 0.8 10^3/uL (0.0-0.8); MONO % 7.1 % (2.0-8.0); NEUTROPHILS # 7.2 10^3/uL (1.5-8.5); NEUTROPHILS % 61.2 % (36.0-66.0); PLATELET COUNT, AUTOMATED 306 10^3/uL (150-450); RED BLOOD COUNT 2.63 10^6/uL (4.00-5.40); WHITE BLOOD COUNT 11.7 10^3/uL (4.0-10.0)
[2024-08-22 06:49] LABS: BLOOD UREA NITROGEN 17 MG/DL (9-23); CALCIUM LEVEL 8.3 MG/DL (8.5-10.1); CARBON DIOXIDE LEVEL 27 MMOL/L (20-31); CHLORIDE LEVEL 105 MMOL/L (98-107); CREATININE FOR GFR 0.72 MG/DL (0.55-1.30); GLOMERULAR FILTRATION RATE > 60.0 (>60); GLUCOSE, FASTING 91 MG/DL (60-100); POTASSIUM SERUM 5.1 MMOL/L (3.5-5.1); SODIUM LEVEL 138 MMOL/L (136-145)
[2024-08-22 06:50] LABS: C REACTIVE PROTEIN QUANTITATIV 16.89 MG/DL (<1.0)
[2024-08-22 08:25] LABS: MAGNESIUM LEVEL 1.9 MG/DL (1.8-2.4)
[2024-08-22] MEDS: METAMUCIL (PSYLLIUM) PACKET PO SCH (09:00)
[2024-08-22] MEDS: MIRALAX *UNIT DOSE* 17GM PACKET PO SCH (09:00)
[2024-08-22] MEDS: SENOKOT S TAB PO SCH (09:09)
[2024-08-22] MEDS: KETOROLAC 30 MG/ML 1ML VIAL IV ONE (12:25)
[2024-08-22] MEDS: NS (Normal Saline) 0.9% 1,000 ML IV ONE (12:26)
[2024-08-22] MEDS ORDERED: LIDOCAINE 2% 100MG/5ML SDV (FOR ANES.) As Ordered ONE (17:21)
[2024-08-22] MEDS ORDERED: propofoL 200 MG/20 ML VIAL As Ordered ONE (17:21)
[2024-08-22] MEDS ORDERED: MIDAZOLAM INJ 2MG/2ML VIAL As Ordered ONE (17:21)
[2024-08-22] MEDS ORDERED: fentaNYL 100 MCG/2 ML INJECTION As Ordered ONE (17:21)
[2024-08-22] MEDS: CETACAINE SPRAY 5GM As Ordered ONE (17:35)
[2024-08-22] MEDS ORDERED: CEFA1SOL IV (18:34)
[2024-08-22] MEDS ORDERED: ACET-683 PO (18:34)
[2024-08-22] MEDS ORDERED: HEPA500023 SC (18:34)
[2024-08-22] MEDS ORDERED: GABA-1172 PO (18:34)
[2024-08-22] MEDS ORDERED: Ketorolac Tromethamine IV (18:34)
[2024-08-22] MEDS ORDERED: ERTA1INJ3 IV (18:34)
[2024-08-22] MEDS: KETOROLAC 30 MG/ML 1ML VIAL IV SCH (18:50)
== END 2024-08-22 19:14 | disposition short-term general hospital (02) | DRG 710 ==
LOC: M ED 18:58 → M ED INP 23:38 → M PCU 08-17 11:38
PROVIDERS: ADMIT Family Medicine; ATTEND Family Medicine
PROC: 07B53ZX Excision of Right Axillary Lymphatic, Percutaneous Approach, Diagnostic (ICD-10-PCS; principal; 2024-08-19 10:00)
PROC: B246ZZZ Ultrasonography of Right and Left Heart (ICD-10-PCS; 2024-08-22)
DX: A41.01 Sepsis due to Methicillin susceptible Staphylococcus aureus (principal); I33.0 Acute and subacute infective endocarditis; E43 Unspecified severe protein-calorie malnutrition; C78.02 Secondary malignant neoplasm of left lung; I48.91 Unspecified atrial fibrillation; R16.2 Hepatomegaly with splenomegaly, not elsewhere classified; J45.909 Unspecified asthma, uncomplicated; M54.50 Low back pain, unspecified; F41.9 Anxiety disorder, unspecified; F43.10 Post-traumatic stress disorder, unspecified; N63.10 Unspecified lump in the right breast, unspecified quadrant; N39.0 Urinary tract infection, site not specified; G40.909 Epilepsy, unspecified, not intractable, without status epilepticus; F17.290 Nicotine dependence, other tobacco product, uncomplicated; M25.511 Pain in right shoulder; R91.8 Other nonspecific abnormal finding of lung field; G47.00 Insomnia, unspecified; Z79.2 Long term (current) use of antibiotics; Z91.018 Allergy to other foods; Z79.899 Other long term (current) drug therapy; B95.61 Methicillin susceptible Staphylococcus aureus infection as the cause of diseases classified elsewhere

== ENCOUNTER → 2024-11-20 | Outpatient (CLI) | payer OTHER, MEDICAID ==
[~2024-11-20] VITALS: Ht 162.6 cm; Wt 87.7 kg
[~2024-11-20] MED LIST changes: +ACET-1349 PO; +ACET-683 PO; +ANAS1TAB2 PO; +CEFA1SOL IV; +CEPH500C PO; +CHEL100T4 PO; +CYCL-707 PO; +CYCL5TAB4 PO; +DULO30CA9 PO; +ERTA1INJ3 IV; +GABA-1172 PO; +HEPA500023 SC; +IBUP1TAB7 PO; +Ketorolac Tromethamine IV; +LEXA1TAB PO; +MELA10CA2 PO; +MELA5TAB47 PO; +MELO15TA28 PO; +METO1TAB87 PO; +OXYC10TA12 PO; +RIBO1TAB2 PO; +TAMO20TA8 PO; +TRAM50TA2 PO; +TRAZ1TAB14 PO
[2024-11-20 14:04] VITALS: BP 136/95; O2SAT 98
== END ==
LOC: M PAL 13:43
PROVIDERS: ATTEND Physician Assistant
DX: Z51.5 Encounter for palliative care (principal); C50.919 Malignant neoplasm of unspecified site of unspecified female breast; Z79.891 Long term (current) use of opiate analgesic; Z91.010 Allergy to peanuts